=== PATIENT | male | born 1945 | race Caucasian/White ===

== ENCOUNTER → 2016-11-16 | Outpatient (CLI) | payer BC ==
[~2016-11-16] MED LIST: ASPI81TA28 PO; FLV1 PO; FSM70 PO; INHALER INH; LOSA100T65 PO; MULT-506 PO; NIFE60TA66 PO; OMEG10007 PO; PRD/1 PO; WLLSR150 PO
[2016-11-16 14:36] LABS: BASO % 0.7 %; BASO ABS # 0.07 K/uL (0-0.2); COMPLETE YES; EOS % 2.8 %; IG% 1.3 %; LYMPH ABS # 1.56 K/uL (1.2-3.4); MEAN CORPUSCULAR HEMOGLOBIN 35.2 pg (25-34); MEAN CORPUSCULAR HGB CONC 34.5 g/dl (32-36); MEAN PLATELET VOLUME 9.3 fL (7.4-10.4); MONO % 9.7 %; NEUT % 69.5 %; PLATELET COUNT 363 K/uL (130-400); RED BLOOD COUNT 3.92 M/uL (4.7-6.1); WHITE BLOOD COUNT 9.76 K/uL (4.8-10.8)
[2016-11-16 14:50] LABS: ALT/SGPT 21 U/L (12-78); BLOOD UREA NITROGEN 10 mg/dl (7-18); BUN/CREATININE RATIO 10.2 (10-20); CARBON DIOXIDE 28 mmol/L (21-32); CHLORIDE 99 mmol/L (98-107); CHOLESTEROL 206 mg/dl (0-200); CREATININE 0.97 mg/dl (0.60-1.40); GLUCOSE 81 mg/dl (70-99); MAGNESIUM 1.9 mg/dl (1.8-2.4); POTASSIUM 3.9 mmol/L (3.5-5.1); SODIUM 139 mmol/L (136-145); TRIGLYCERIDES 56 mg/dl (0-150); VERY LOW DENSITY LIPOPROT CALC 11 mg/dl
[2016-11-16 14:59] LABS: ALB/GLOB RATIO 0.9 (0.9-2); ALKALINE PHOSPHATASE 111 U/L (45-117); AST/SGOT 33 U/L (15-37); CHOLESTEROL/HDL RATIO 1.9; HDL CHOLESTEROL 109 mg/dl; LDL CHOLESTEROL CALCULATED 86 mg/dl; PROSTATE SPECIFIC ANTIGEN < 0.010 ng/ml (0.000-4.000); THYROID STIMULATING HORMONE 0.903 uIu/ml (0.300-4.500)
== END | disposition home or self-care (01) ==
LOC: C.LAB1850 13:14
PROVIDERS: ATTEND Internal Medicine
DX: C61 Malignant neoplasm of prostate (principal); F32.9 Major depressive disorder, single episode, unspecified; R73.9 Hyperglycemia, unspecified; M35.3 Polymyalgia rheumatica; R25.2 Cramp and spasm; I10 Essential (primary) hypertension

== ENCOUNTER → 2017-05-23 | Outpatient (CLI) | payer BC ==
[~2017-05-23] MED LIST changes: +NIFE1TAB55 PO; -NIFE60TA66 PO
[2017-05-23 15:26] LABS: BASO % 0.9 %; BASO ABS # 0.08 K/uL (0-0.2); COMPLETE YES; EOS % 1.8 %; HEMATOCRIT 41.2 % (42-52); IG% 1.2 %; LYMPH % 11.3 %; LYMPH ABS # 1.05 K/uL (1.2-3.4); MEAN CELL VOLUME 103.3 fL (80-100); MEAN CORPUSCULAR HEMOGLOBIN 34.3 pg (25-34); MEAN CORPUSCULAR HGB CONC 33.3 g/dl (32-36); MEAN PLATELET VOLUME 9.4 fL (7.4-10.4); MONO % 11.9 %; NEUT % 72.9 %; PLATELET COUNT 413 K/uL (130-400); RED BLOOD COUNT 3.99 M/uL (4.7-6.1); WHITE BLOOD COUNT 9.26 K/uL (4.8-10.8)
[2017-05-23 15:53] LABS: ALT/SGPT 26 U/L (12-78); BLOOD UREA NITROGEN 12 mg/dl (7-18); BUN/CREATININE RATIO 11.7 (10-20); CALCIUM 9.6 mg/dl (8.5-10.1); CARBON DIOXIDE 30 mmol/L (21-32); CHLORIDE 98 mmol/L (98-107); GLUCOSE 97 mg/dl (70-99); POTASSIUM 3.8 mmol/L (3.5-5.1); SODIUM 136 mmol/L (136-145)
[2017-05-23 16:02] LABS: ALKALINE PHOSPHATASE 97 U/L (45-117); AST/SGOT 33 U/L (15-37); PROSTATE SPECIFIC ANTIGEN < 0.010 ng/ml (0.000-4.000)
== END | disposition home or self-care (01) ==
LOC: C.LAB1850 14:02
PROVIDERS: ATTEND Internal Medicine
DX: I10 Essential (primary) hypertension (principal); D64.9 Anemia, unspecified; C61 Malignant neoplasm of prostate; Z11.59 Encounter for screening for other viral diseases

== ENCOUNTER → 2017-11-20 | Outpatient (CLI) | payer BC ==
[~2017-11-20] MED LIST changes: -NIFE1TAB55 PO; +NIFE60TA66 PO
[2017-11-20 16:48] LABS: BASO % 0.6 %; BASO ABS # 0.05 K/uL (0-0.2); EOS % 2.2 %; EOS ABS # 0.19 K/uL (0-0.5); HEMATOCRIT 37.8 % (42-52); IG# 0.09 K/uL (0.00-0.02); LYMPH % 13.4 %; LYMPH ABS # 1.16 K/uL (1.2-3.4); MEAN CELL VOLUME 100.3 fL (80-100); MEAN CORPUSCULAR HEMOGLOBIN 34.5 pg (25-34); MEAN CORPUSCULAR HGB CONC 34.4 g/dl (32-36); MEAN PLATELET VOLUME 9.3 fL (7.4-10.4); MONO % 11.8 %; MONO ABS # 1.02 K/uL (0.11-0.59); NEUT ABS # 6.13 K/uL (1.4-6.5); PLATELET COUNT 362 K/uL (130-400); RED CELL DISTRIBUTION WIDTH CV 12.7 % (11.5-14.5); RED CELL DISTRIBUTION WIDTH SD 45.8 fL (36.4-46.3); WHITE BLOOD COUNT 8.64 K/uL (4.8-10.8)
[2017-11-20 17:30] LABS: BLOOD UREA NITROGEN 18 mg/dl (7-18); CREATININE 1.02 mg/dl (0.60-1.40)
== END | disposition home or self-care (01) ==
LOC: C.LAB1850 15:22
PROVIDERS: ATTEND Urology
DX: D64.9 Anemia, unspecified (principal); C61 Malignant neoplasm of prostate

== ENCOUNTER → 2018-01-03 | Outpatient (CLI) | payer BC ==
[~2018-01-03] MED LIST changes: +APR50 PO; +IPRA1AER2 INH; +PRED10TA PO; +PRVHFAIN INH
--- NOTE | 2018-01-03 14:39 | DIAGNOSTIC IMAGING REPORT ---
CHEST 2 VIEWS ROUTINE CLINICAL HISTORY: COUGH COMPARISON STUDY: 04/25/2014 FINDINGS: There is pulmonary emphysema. There is no failure. There is no focal pulmonary consolidation. There are no pleural effusions.[ IMPRESSION: Emphysema. No active disease in the chest. Electronically signed by: Darrell Lawrence M.D. 01/03/2018 2:38 PM Dictated Date/Time: 01/03/2018 2:38 PM
[2018-01-03 15:34] LABS: BASO % 0.8 %; BASO ABS # 0.04 K/uL (0-0.2); EOS % 1.7 %; EOS ABS # 0.08 K/uL (0-0.5); HEMATOCRIT 39.2 % (42-52); HEMOGLOBIN 13.4 g/dL (14.0-18.0); IG# 0.05 K/uL (0.00-0.02); LYMPH ABS # 0.96 K/uL (1.2-3.4); MEAN CELL VOLUME 99.2 fL (80-100); MEAN CORPUSCULAR HEMOGLOBIN 33.9 pg (25-34); MEAN CORPUSCULAR HGB CONC 34.2 g/dl (32-36); MEAN PLATELET VOLUME 9.6 fL (7.4-10.4); MONO % 19.5 %; MONO ABS # 0.94 K/uL (0.11-0.59); NEUT ABS # 2.74 K/uL (1.4-6.5); PLATELET COUNT 326 K/uL (130-400); RED CELL DISTRIBUTION WIDTH CV 12.3 % (11.5-14.5); RED CELL DISTRIBUTION WIDTH SD 44.8 fL (36.4-46.3); WHITE BLOOD COUNT 4.81 K/uL (4.8-10.8)
[2018-01-03 15:59] LABS: ALBUMIN 3.6 gm/dl (3.4-5.0); ALT/SGPT 36 U/L (12-78); BLOOD UREA NITROGEN 20 mg/dl (7-18); CALCIUM 9.5 mg/dl (8.5-10.1); CARBON DIOXIDE 30 mmol/L (21-32); CREATININE 1.23 mg/dl (0.60-1.40); GLUCOSE 95 mg/dl (70-99); SODIUM 133 mmol/L (136-145)
[2018-01-03 16:02] LABS: ALKALINE PHOSPHATASE 90 U/L (45-117); AST/SGOT 46 U/L (15-37); TOTAL PROTEIN 7.2 gm/dl (6.4-8.2)
== END | disposition home or self-care (01) ==
LOC: C.RAD1850 14:22
PROVIDERS: ATTEND Internal Medicine
DX: R05 Cough (principal); J43.9 Emphysema, unspecified

== ENCOUNTER 2018-01-06 13:07 | Inpatient (IN) | payer BC, OTHER ==
[~2018-01-06] VITALS: Ht 177.8 cm; Wt 57.1 kg
[~2018-01-06 13:07] MED LIST changes: -APR50 PO; -ASPI81TA28 PO; -FLV1 PO; -FSM70 PO; -IPRA1AER2 INH; -LOSA100T65 PO; -MULT-506 PO; -OMEG10007 PO; -PRED10TA PO; -PRVHFAIN INH; -WLLSR150 PO
[2018-01-06] MEDS ORDERED: LOSA100T65 PO (14:22)
[2018-01-06] MEDS ORDERED: FLV1 PO (14:22)
[2018-01-06] MEDS ORDERED: ASPI81TA28 PO (14:22)
[2018-01-06] MEDS ORDERED: SODIUM CHLORIDE 0.9% 1000ML 1,000 ML IV STA (14:45)
[2018-01-06] MEDS ORDERED: APR50 PO (15:09)
[2018-01-06 15:12] LABS: BASO % 0.5 %; BASO ABS # 0.02 K/uL (0-0.2); EOS % 1.6 %; EOS ABS # 0.06 K/uL (0-0.5); HEMOGLOBIN 13.2 g/dL (14.0-18.0); IG# 0.03 K/uL (0.00-0.02); LYMPH % 18.7 %; LYMPH ABS # 0.72 K/uL (1.2-3.4); MEAN CELL VOLUME 98.4 fL (80-100); MEAN CORPUSCULAR HEMOGLOBIN 34.2 pg (25-34); MEAN CORPUSCULAR HGB CONC 34.7 g/dl (32-36); MEAN PLATELET VOLUME 9.3 fL (7.4-10.4); MONO % 17.9 %; MONO ABS # 0.69 K/uL (0.11-0.59); NEUT % 60.5 %; NEUT ABS # 2.34 K/uL (1.4-6.5); PLATELET COUNT 256 K/uL (130-400); RED CELL DISTRIBUTION WIDTH CV 12.2 % (11.5-14.5); RED CELL DISTRIBUTION WIDTH SD 43.6 fL (36.4-46.3); WHITE BLOOD COUNT 3.86 K/uL (4.8-10.8)
[2018-01-06] MEDS ORDERED: OMEG10007 PO (15:31)
[2018-01-06] MEDS ORDERED: MULT-506 PO (15:31)
[2018-01-06 15:36] LABS: ALBUMIN 3.5 gm/dl (3.4-5.0); ALT/SGPT 44 U/L (12-78); AST/SGOT 54 U/L (15-37); BLOOD UREA NITROGEN 16 mg/dl (7-18); CALCIUM 8.6 mg/dl (8.5-10.1); CARBON DIOXIDE 29 mmol/L (21-32); CREATININE 1.26 mg/dl (0.60-1.40); GLUCOSE 96 mg/dl (70-99); LIPASE 285 U/L (73-393); SODIUM 135 mmol/L (136-145)
--- NOTE | 2018-01-06 15:42 | DIAGNOSTIC IMAGING REPORT ---
CHEST ONE VIEW PORTABLE CLINICAL HISTORY: EVALUATE WEAKNESS COMPARISON STUDY: Chest radiograph January 03, 2018. FINDINGS: Lungs are hyperexpanded. This suggests emphysema. There is no pneumothorax or pleural effusion. Nipple shadows project over the lower lungs. There is no consolidation to suggest pneumonia. There is no evidence for pulmonary edema. Linear right lower lung opacity suggest atelectasis or scarring. The appearance of the chest is unchanged. IMPRESSION: 1. No acute cardiopulmonary findings. 2. Emphysema. Electronically signed by: Milton Branham M.D. 01/06/2018 3:40 PM Dictated Date/Time: 01/06/2018 3:38 PM
[2018-01-06 15:44] LABS: ALKALINE PHOSPHATASE 94 U/L (45-117); CKMB 1.4 ng/ml (0.5-3.6); TOTAL PROTEIN 7.2 gm/dl (6.4-8.2)
--- NOTE | 2018-01-06 15:54 | EMERGENCY ROOM VISIT NOTE ---
History Report prepared by Devika: Kylie Gil Under the Supervision of: Dr. Bry Ayon M.D. First contact with patient: 14:44 Chief Complaint: ILLNESS Stated Complaint: 1 MO IN BED & COLD FOR 2 WEEKS,NO ENERGY,CANT EAT Nursing Triage Summary: pt c/o illness for about a month. weakness, unsteady, unable to eat, stomach discomfort. lost 10 lb over a month. denies v/d. some nausea. seen by PCP- had Xray which was negative, negative flu. Hx of polymyalgia- "when I get a spell I take Prednisone. I feel like I may be getting that". History of Present Illness The patient is a 72 year old male who presents to the Emergency Room with complaints of constant generalized illness beginning about a month ago. The patient reports fatigue, a lingering cough, slight headache, and decreased appetite. He states he has lost about 10 pounds over the past month. The patient was seen by his PCP three days ago where he had a chest X-ray which was negative and a negative flu. He states he has a "reservoir of fluid which sits at the bottom of my lungs" what when he coughs "very hard" he is able to clear. He notes he has been constipated but believes it may be from his decreased food intake. The patient reports being a former smoker of 50 years. The patient states he is a former alcoholic. He reports he has only had 5 beers in the past month. Pt denies LOC, headache, fevers, chills, diaphoresis, visual changes, neck pain, chest pain, nausea, vomiting, abdominal pain, back pain, melena, hematochezia, urinary symptoms, numbness, focal weakness, lymphadenopathy, rash , or other complaints. Source of History: patient Onset: a month ago Position: other (generalized) Quality: other (illness) Associated Symptoms: + headache, + cough, + fatigue Review of Systems See HPI for pertinent positives and negatives. A total of ten systems were reviewed and were otherwise negative. Past Medical & Surgical Medical Problems: (1) Alcoholism /alcohol abuse (2) HTN (hypertension) (3) Personal History Of Colonic Polyps Surgical Problems: (1) History of prostatectomy (2) History of tonsillectomy Family History FH: cancer FH: lung disease Hypertension Social History Smoking Status: Former Smoker Alcohol Use: heavy Marital Status: single Housing Status: lives alone Occupation Status: employed Current/Historical Medications Scheduled Alendronate Sodium (Alendronate Sodium), 70 MG PO WK Aspirin (Aspirin Ec), 81 MG PO HS Bupropion HCl (Bupropion HCl Sr), 150 MG PO BID Fish Oil ([place]-3), 1 CAP PO QAM Folic Acid (Folic Acid), 1 MG PO QAM Hydralazine HCl (Hydralazine HCl), 75 MG PO BID Losartan Potassium (Cozaar), 100 MG PO QAM Multivitamin (Multivitamin), 0.5 TAB PO BID Allergies Coded Allergies: No Known Allergies (Unverified , 08/22/16) Physical Exam Vital Signs Date Time Temp Pulse Resp B/P (MAP) Pulse Ox O2 Delivery O2 Flow Rate FiO2 01/06/18 18:38 75 20 159/86 95 Nasal Cannula 2.0 01/06/18 18:12 94 Nasal Cannula 2.0 01/06/18 17:05 94 Nasal Cannula 2.0 01/06/18 17:03 88 Room Air 01/06/18 16:05 94 Nasal Cannula 2.0 01/06/18 16:05 88 Room Air 01/06/18 15:40 68 20 140/89 90 Room Air 01/06/18 15:20 70 01/06/18 13:16 36.7 90 20 128/78 94 Room Air Physical Exam GENERAL: Awake, alert, cachetic and gaunt-appearing, in no distress HENT: Normocephalic, atraumatic. Oropharynx unremarkable. EYES: Normal conjunctiva. Sclera non-icteric. NECK: Supple. No nuchal rigidity. FROM. No masses. RESPIRATORY: Clear to auscultation. No wheezes. CARDIAC: Normal rate. Normal rhythm. No murmurs. No rubs. Extremities warm and well perfused. Pulses equal. No JVD. GI: Soft, non-distended. No tenderness to palpation. No rebound or guarding. No masses. RECTAL: Deferred. MUSCULOSKELETAL: Atraumatic. Chest examination reveals no tenderness. The back is symmetrical on inspection without obvious abnormality. There is no CVA tenderness to palpation. No joint edema. LOWER EXTREMITIES: Calves are equal size bilaterally and non-tender. No edema. No discoloration. NEURO: Normal sensorium. No sensory or motor deficits noted. SKIN: No rash or jaundice noted. Medical Decision & Procedures ER Provider Diagnostic Interpretation: Radiology results as stated below per my review and radiologist interpretation: CHEST ONE VIEW PORTABLE FINDINGS: Lungs are hyperexpanded. This suggests emphysema. There is no pneumothorax or pleural effusion. Nipple shadows project over the lower lungs. There is no consolidation to suggest pneumonia. There is no evidence for pulmonary edema. Linear right lower lung opacity suggest atelectasis or scarring. The appearance of the chest is unchanged. IMPRESSION: 1. No acute cardiopulmonary findings. 2. Emphysema. Electronically signed by: Milton Branham M.D. CT ANGIOGRAPHY OF THE CHEST, PULMONARY EMBOLUS PROTOCOL FINDINGS: No pulmonary emboli are identified. There is no evidence of thoracic aortic dissection. The size of the heart is normal. There is moderate coronary artery calcification. No enlarged axillary, mediastinal or hilar lymph nodes are present. There is no consolidation to suggest pneumonia. Linear right lower lung opacity reflects atelectasis. There are mild secretions within the airways with bronchial wall thickening, most evident within the lower lobes. There are severe emphysema. No pneumothorax or pleural effusion is noted. There are no suspicious osseous lesions within the bony thorax. There is cortical calcification within the midpole of the right kidney with suspected scarring. This is partially imaged. IMPRESSION: 1. No pulmonary emboli identified. 2. No consolidation to suggest pneumonia. 3. Severe emphysema. 4. Mild secretions within the airways with diffuse bronchial wall thickening. Electronically signed by: Milton Branham M.D. Laboratory Results 01/06/18 14:56 Red Blood Count 3.86, Mean Corpuscular Volume 98.4, Mean Corpuscular Hemoglobin 34.2, Mean Corpuscular Hemoglobin Concent 34.7, Mean Platelet Volume 9.3, Neutrophils (%) (Auto) 60.5, Lymphocytes (%) (Auto) 18.7, Monocytes (%) (Auto) 17.9, Eosinophils (%) (Auto) 1.6, Basophils (%) (Auto) 0.5, Neutrophils # (Auto ) 2.34, Lymphocytes # (Auto) 0.72, Monocytes # (Auto) 0.69, Eosinophils # (Auto ) 0.06, Basophils # (Auto) 0.02 01/06/18 14:56 Test 01/06/18 14:56 White Blood Count 3.86 K/uL (4.8-10.8) Red Blood Count 3.86 M/uL (4.7-6.1) Hemoglobin 13.2 g/dL (14.0-18.0) Hematocrit 38.0 % (42-52) Mean Corpuscular Volume 98.4 fL (80-100) Mean Corpuscular Hemoglobin 34.2 pg (25-34) Mean Corpuscular Hemoglobin Concent 34.7 g/dl (32-36) Platelet Count 256 K/uL (130-400) Mean Platelet Volume 9.3 fL (7.4-10.4) Neutrophils (%) (Auto) 60.5 % Lymphocytes (%) (Auto) 18.7 % Monocytes (%) (Auto) 17.9 % Eosinophils (%) (Auto) 1.6 % Basophils (%) (Auto) 0.5 % Neutrophils # (Auto) 2.34 K/uL (1.4-6.5) Lymphocytes # (Auto) 0.72 K/uL (1.2-3.4) Monocytes # (Auto) 0.69 K/uL (0.11-0.59) Eosinophils # (Auto) 0.06 K/uL (0-0.5) Basophils # (Auto) 0.02 K/uL (0-0.2) RDW Standard Deviation 43.6 fL (36.4-46.3) RDW Coefficient of Variation 12.2 % (11.5-14.5) Immature Granulocyte % (Auto) 0.8 % Immature Granulocyte # (Auto) 0.03 K/uL (0.00-0.02) Prothrombin Time 10.0 SECONDS (9.0-12.0) Prothromb Time International Ratio 1.0 (0.9-1.1) Activated Partial Thromboplast Time 35.0 SECONDS (21.0-31.0) Partial Thromboplastin Ratio 1.3 Urine Color DK YELLOW Urine Appearance CLEAR (CLEAR) Urine pH 7.0 (4.5-7.5) Urine Specific [place] 1.022 (1.000-1.030) Urine Protein TRACE (NEG) Urine Glucose (UA) NEG (NEG) Urine Ketones TRACE (NEG) Urine Occult Blood NEG (NEG) Urine Nitrite NEG (NEG) Urine Bilirubin NEG (NEG) Urine Urobilinogen NEG (NEG) Urine Leukocyte Esterase TRACE (NEG) Urine WBC (Auto) 1-5 /hpf (0-5) Urine RBC (Auto) 0-4 /hpf (0-4) Urine Hyaline Casts (Auto) 1-5 /lpf (0-5) Urine Epithelial Cells (Auto) 10-20 /lpf (0-5) Urine Bacteria (Auto) NEG (NEG) Anion Gap 6.0 mmol/L (3-11) Est Creatinine Clear Calc Drug Dose 44.1 ml/min Estimated GFR () 66.5 Estimated GFR (Non- 57.4 BUN/Creatinine Ratio 13.0 (10-20) Calcium Level 8.6 mg/dl (8.5-10.1) Magnesium Level 1.9 mg/dl (1.8-2.4) Total Bilirubin 0.4 mg/dl (0.2-1) Direct Bilirubin 0.1 mg/dl (0-0.2) Aspartate Amino Transf (AST/SGOT) 54 U/L (15-37) Alanine Aminotransferase (ALT/SGPT) 44 U/L (12-78) Alkaline Phosphatase 94 U/L (45-117) Total Creatine Kinase 30 U/L (39-308) Creatine Kinase MB 1.4 ng/ml (0.5-3.6) Creatine Kinase MB Ratio 4.7 (0-3.0) Troponin I < 0.015 ng/ml (0-0.045) Total Protein 7.2 gm/dl (6.4-8.2) Albumin 3.5 gm/dl (3.4-5.0) Lipase 285 U/L (73-393) Thyroid Stimulating Hormone (TSH) 1.010 uIu/ml (0.300-4.500) Lyme Disease IgG Antibody NEG (NEG) Lyme Disease IgM Antibody NEG (NEG) Laboratory results reviewed by me Medications Administered Medications (Trade) Dose Ordered Sig/Flash Route Start Time Stop Time Status Last Admin Dose Admin Sodium Chloride 1,000 ml @ 125 mls/hr Q8H STAT IV 01/06/18 14:45 01/06/18 22:44 01/06/18 14:45 125 MLS/HR Methylprednisolone Sodium Succinate (Solu-Medrol IV) 125 mg NOW STAT IV 01/06/18 17:08 01/06/18 17:09 DC 01/06/18 17:08 125 MG Albuterol/ Ipratropium (Duoneb) 3 ml NOW STAT INH 01/06/18 17:08 01/06/18 17:09 DC 01/06/18 17:08 3 ML ECG Per My Interpretation Indication: weakness Rate (beats per minute): 71 Rhythm: normal sinus Findings: LAFB, no acute ischemic change, no ectopy ED Course 1445: Ordered Sodium Chloride 1000 ml @ 125 mls/hr IV. 1457: The patient was evaluated in room B4B. A complete history and physical exam was performed. 1637: I updated the patient on his test results. He is feeling better. 1642: Confirmed CT reading with Dr. Branham-Radiologist. 1644: I updated the patient on my conversation with Dr. Branham-Radiologist. Will do ambulatory pulse ox. 1707: The patient went down to 88 percent on ambulatory pulse ox. Will consult hospitalist. 1708: Ordered Duoneb 3 ml INH, Solu-Medrol IV 125 mg IV. 1709: I updated the patient on the treatment plan. He is agreeable to come into the hospital. 1711: [facility] the [facility] [place] patient will be evaluated for further treatment and disposition. Medical Decision Triage Nursing notes reviewed. The patient's presentation and history were concerning for malaise, weight loss , and cough Etiologies such as metabolic, infection, hypo/hyperglycemia, electrolyte abnormalities, malignancy, cardiac sources, intracerebral event, toxicologic, neurologic, as well as others were entertained. The patient was evaluated. Physical examination as above. His CBC showed a mild anemia and leukopenia. There is no significant issues on chemistry panel. Cardiac markers were negative. ECG was nonischemic. Normal rhythm. He has a long history of alcoholism and smoking. If symptoms changes were noted on chest x-ray. Scarring as well as a possible nipple shadow noted. A CT of the chest was performed to evaluate for PE, malignancy, or infection. There is no evidence of PE or malignancy. Severe COPD noted. Patient was found to be hypoxic at rest and with ambulation. Supplemental oxygen correct this. He was given a DuoNeb and Solu-Medrol. Because of this further evaluation and management in the hospital will be necessary. I gave my usual and customary discussion regarding this issue. Consultation made with internal medicine. The patient was evaluated in the Emergency Room for further management. Medication Reconcilliation Current Medication List: was personally reviewed by me Blood Pressure Screening Patient's blood pressure: Elevated blood pressure Blood pressure disposition: Referred to PCP (referred to hospitalist) Consults Time Called: 1708 Consulting Physician: Dr. Cheung Returned Call: 1700 Discussed the patient's case with Dr. Cheung The patient will be evaluated for further treatment and disposition. Impression Primary Impression: Hypoxia Additional Impressions: COPD exacerbation Failure to thrive Scribe Attestation The scribe's documentation has been prepared under my direction and personally reviewed by me in its entirety. I confirm that the note above accurately reflects all work, treatment, procedures, and medical decision making performed by me. Departure Information Dispostion Being Evaluated By Hospitalist Referrals RV. Sanders MD (PCP) Patient Instructions My [facility] Problem Qualifiers
[2018-01-06] MEDS ORDERED: OPTIRAY 320 IV PRN (16:15)
[2018-01-06] MEDS ORDERED: WLLSR150 PO (16:19)
[2018-01-06] MEDS ORDERED: FSM70 PO (16:24)
--- NOTE | 2018-01-06 16:25 | DIAGNOSTIC IMAGING REPORT ---
CT ANGIOGRAPHY OF THE CHEST, PULMONARY EMBOLUS PROTOCOL CLINICAL HISTORY: Shortness of breath and cough. Weight loss. COMPARISON STUDY: Chest radiographs January 03, 2018 and January 06, 2018. TECHNIQUE: Following IV administration of 109 mL of [id number]-320, helical axial images of the chest were obtained utilizing the pulmonary embolus protocol. Maximal intensity projections and sagittal and coronal reformats were viewed on an independent 3D workstation. IV contrast was administered without complication. A dose lowering technique was utilized adhering to the principles of ALARA. CT DOSE: 244.58 mGy.cm FINDINGS: No pulmonary emboli are identified. There is no evidence of thoracic aortic dissection. The size of the heart is normal. There is moderate coronary artery calcification. No enlarged axillary, mediastinal or hilar lymph nodes are present. There is no consolidation to suggest pneumonia. Linear right lower lung opacity reflects atelectasis. There are mild secretions within the airways with bronchial wall thickening, most evident within the lower lobes. There are severe emphysema. No pneumothorax or pleural effusion is noted. There are no suspicious osseous lesions within the bony thorax. There is cortical calcification within the midpole of the right kidney with suspected scarring. This is partially imaged. IMPRESSION: 1. No pulmonary emboli identified. 2. No consolidation to suggest pneumonia. 3. Severe emphysema. 4. Mild secretions within the airways with diffuse bronchial wall thickening. Electronically signed by: Milton Branham M.D. 01/06/2018 4:24 PM Dictated Date/Time: 01/06/2018 4:12 PM
[2018-01-06] MEDS ORDERED: ALBUT/IPRATROP 3MG/0.5MG NEB 3 ML VIAL INH STA (17:08)
[2018-01-06] MEDS ORDERED: METHYLPREDNISOLONE 125 MG VIAL IV STA (17:08)
[2018-01-06 18:12] VITALS: O2SAT 94; BMI 18.1
[2018-01-06] MEDS ORDERED: ONDANSETRON INJ 2 MG/ML 2 ML VIAL IV PRN (18:15)
[2018-01-06] MEDS ORDERED: ALBUTEROL HFA 8 GM INHALER INH PRN (18:15)
[2018-01-06] MEDS ORDERED: ACETAMINOPHEN 325 MG TAB PO PRN (18:15)
[2018-01-06] MEDS ORDERED: MAGNESIUM HYDROXIDE SUSP 30 ML UDC PO PRN (18:15)
--- NOTE | 2018-01-06 18:24 | History and Physical ---
History & Physical Date & Time of Service: Jan 06, 2018 at 18:10 Chief Complaint: 1 Mo In Bed & Cold For 2 Weeks,No Energy,Cant Eat Primary Care Physician: RV. Sanders MD History of Present Illness Source: patient 72 y/o M with several concerns. Pt states he first felt ill about 1 month ago with fatigue, cough, headache, and decreased appetite. He saw his PCP about 2.5 weeks into this and had CXR and labs done "that were all fine". He was dx with a viral illness at that time. He has continued to feel unwell and feels his sx are getting worse. He has worsening appetite and at this point has lost about 10 lbs "which I didn't have to lose". He does not feel SOB at rest or with basic walking, but he is getting quite SOB with any sort of strenuous activity, which is new for him. No chest pain. Pt denies fever, abd pain, n/v/c/ d, LE pain or swelling. Pt states he was given an inhaler about 5 years ago, but he never used it. Past Medical/Surgical History HTN TIA, on aspirin 81mg Hx of alcohol abuse Family History Family history was reviewed; no changes noted. Social History Smoking Status: Former Smoker (quit x3 years) Alcohol Use: hx of heavy use, max 12 beers per day. He has been mostly alcohol free after working with a counselor and a taper. He has had 5 beers over the last month with last beer last weekend Drug Use: marijuana (daily) Marital Status: single Occupational Status: employed Immunizations History of Influenza Vaccine: No History of Tetanus Vaccine?: Yes History of Pneumococcal: No History of Hepatitis B Vaccine: No Multi-Drug Resistant Organisms History of MDRO: No Allergies Coded Allergies: No Known Allergies (Unverified , 08/22/16) Home Medications Scheduled Alendronate Sodium (Alendronate Sodium), 70 MG PO WK Aspirin (Aspirin Ec), 81 MG PO HS Bupropion HCl (Bupropion HCl Sr), 150 MG PO BID Fish Oil ([place]-3), 1 CAP PO QAM Folic Acid (Folic Acid), 1 MG PO QAM Hydralazine HCl (Hydralazine HCl), 75 MG PO BID Losartan Potassium (Cozaar), 100 MG PO QAM Multivitamin (Multivitamin), 0.5 TAB PO BID Review of Systems Pertinent positives and negatives reviewed in HPI--all others negative Physical Exam Vital Signs Date Time Temp Pulse Resp B/P (MAP) Pulse Ox O2 Delivery O2 Flow Rate FiO2 01/06/18 17:05 94 Nasal Cannula 2.0 01/06/18 17:03 88 Room Air 01/06/18 16:05 94 Nasal Cannula 2.0 01/06/18 16:05 88 Room Air 01/06/18 15:40 68 20 140/89 90 Room Air 01/06/18 15:20 70 01/06/18 13:16 36.7 90 20 128/78 94 Room Air General Appearance: no apparent distress, + thin Head: normocephalic, atraumatic Eyes: normal inspection, sclerae normal Respiratory/Chest: no respiratory distress, + decreased breath sounds Cardiovascular: regular rate, rhythm, no edema Abdomen/GI: non tender, soft Extremities/Musculoskelatal: no calf tenderness, no pedal edema Neurologic/Psych: alert, normal mood/affect, oriented x 3 Skin: normal color, warm/dry Diagnostics Laboratory Results Results Past 24 Hours Test 01/06/18 14:56 Range/Units White Blood Count 3.86 4.8-10.8 K/uL Red Blood Count 3.86 4.7-6.1 M/uL Hemoglobin 13.2 14.0-18.0 g/dL Hematocrit 38.0 42-52 % Mean Corpuscular Volume 98.4 80-100 fL Mean Corpuscular Hemoglobin 34.2 25-34 pg Mean Corpuscular Hemoglobin Concent 34.7 32-36 g/dl Platelet Count 256 130-400 K/uL Mean Platelet Volume 9.3 7.4-10.4 fL Neutrophils (%) (Auto) 60.5 % Lymphocytes (%) (Auto) 18.7 % Monocytes (%) (Auto) 17.9 % Eosinophils (%) (Auto) 1.6 % Basophils (%) (Auto) 0.5 % Neutrophils # (Auto) 2.34 1.4-6.5 K/uL Lymphocytes # (Auto) 0.72 1.2-3.4 K/uL Monocytes # (Auto) 0.69 0.11-0.59 K/uL Eosinophils # (Auto) 0.06 0-0.5 K/uL Basophils # (Auto) 0.02 0-0.2 K/uL RDW Standard Deviation 43.6 36.4-46.3 fL RDW Coefficient of Variation 12.2 11.5-14.5 % Immature Granulocyte % (Auto) 0.8 % Immature Granulocyte # (Auto) 0.03 0.00-0.02 K/uL Prothrombin Time 10.0 9.0-12.0 SECONDS Prothromb Time International Ratio 1.0 0.9-1.1 Activated Partial Thromboplast Time 35.0 21.0-31.0 SECONDS Partial Thromboplastin Ratio 1.3 Urine Color DK YELLOW Urine Appearance CLEAR CLEAR Urine pH 7.0 4.5-7.5 Urine Specific [place] 1.022 1.000-1.030 Urine Protein TRACE NEG Urine Glucose (UA) NEG NEG Urine Ketones TRACE NEG Urine Occult Blood NEG NEG Urine Nitrite NEG NEG Urine Bilirubin NEG NEG Urine Urobilinogen NEG NEG Urine Leukocyte Esterase TRACE NEG Urine WBC (Auto) 1-5 0-5 /hpf Urine RBC (Auto) 0-4 0-4 /hpf Urine Hyaline Casts (Auto) 1-5 0-5 /lpf Urine Epithelial Cells (Auto) 10-20 0-5 /lpf Urine Bacteria (Auto) NEG NEG Sodium Level 135 136-145 mmol/L Potassium Level 4.0 3.5-5.1 mmol/L Chloride Level 100 98-107 mmol/L Carbon Dioxide Level 29 21-32 mmol/L Anion Gap 6.0 3-11 mmol/L Blood Urea Nitrogen 16 7-18 mg/dl Creatinine 1.26 0.60-1.40 mg/dl Est Creatinine Clear Calc Drug Dose 44.1 ml/min Estimated GFR () 66.5 Estimated GFR (Non- 57.4 BUN/Creatinine Ratio 13.0 10-20 Random Glucose 96 70-99 mg/dl Calcium Level 8.6 8.5-10.1 mg/dl Magnesium Level 1.9 1.8-2.4 mg/dl Total Bilirubin 0.4 0.2-1 mg/dl Direct Bilirubin 0.1 0-0.2 mg/dl Aspartate Amino Transf (AST/SGOT) 54 15-37 U/L Alanine Aminotransferase (ALT/SGPT) 44 12-78 U/L Alkaline Phosphatase 94 45-117 U/L Total Creatine Kinase 30 39-308 U/L Creatine Kinase MB 1.4 0.5-3.6 ng/ml Creatine Kinase MB Ratio 4.7 0-3.0 Troponin I < 0.015 0-0.045 ng/ml Total Protein 7.2 6.4-8.2 gm/dl Albumin 3.5 3.4-5.0 gm/dl Lipase 285 73-393 U/L Thyroid Stimulating Hormone (TSH) 1.010 0.300-4.500 uIu/ml Lyme Disease IgG Antibody NEG NEG Lyme Disease IgM Antibody NEG NEG Microbiology Results 01/06/18 Urine Culture, Received Pending Diagnostic Radiology CXR and CTA both noted for severe emphysema Impression Assessment and Plan 72 y/o M who was admitted on 01/06 for COPD exacerbation COPD exacerbation: hypoxia noted with exertion New dx for pt, will need formal PFTs once recovered CXR/CTA noted for COPD Nebs, steroids Will need home inhaler Wean O2 as able CBC WNL, afebrile Lyme neg TSH WNL Trop neg Weight loss: likely related to poor appetite and PO intake during viral illness in the setting of COPD and poor recovery Pt follows with GI Q3 years for c-scopes for hx of benign polyps, next scope is this year Hx of prostate ca, f/u scheduled with Dr. Mai in 1 week Advised close f/u Alcohol use: last drink was over a week ago and has been with minimal intake recently Monitor No hx of withdrawal issues/seizures Hx of TIA: continue with aspirin 81mg HTN: stable, continue home meds Other: Full code, does not want prolonged mechanical life support or feeding tubes Ambulation for DVT proph Reg diet Pt would like a tetanus shot prior to d/c as he states >10years since his last. Level of Care Med/Surg Resuscitation Status FULL RESUSCITATION VTE Prophylaxis VTE Risk Assessment Done? Y/N: Yes Risk Level: Low
[2018-01-06] MEDS ORDERED: MULTIVITAMIN TAB PO SCH (20:14)
[2018-01-06 20:29] VITALS: BP_SYST 174; BP_SYST 176; BP_DIAS 81; BP_DIAS 86; PULSE 62; TEMP 36.8; O2SAT 97
[2018-01-06] MEDS: ALBUT/IPRATROP 3MG/0.5MG NEB 3 ML VIAL NEB SCH (20:58)
[2018-01-06] MEDS: BuPROPion SR 150 MG TABCR PO SCH (22:26)
[2018-01-06] MEDS: ASPIRIN 81 MG ECTAB PO SCH (22:27)
[2018-01-07] VITALS (8 sets, daily range): BP systolic 143–166; BP diastolic 68–77; PULSE 71–83; TEMP 36.7–36.8; O2SAT 92–95; Ht 177.8 cm; Wt 57.1 kg
[2018-01-07] MEDS: ALBUT/IPRATROP 3MG/0.5MG NEB 3 ML VIAL NEB SCH ×4 (01:53→19:25)
[2018-01-07] MEDS: BuPROPion SR 150 MG TABCR PO SCH ×2 (08:07→21:07)
[2018-01-07] MEDS: METHYLPREDNISOLONE IV 40 MG in SYRINGE 0 ML IV SCH (08:07)
[2018-01-07] MEDS: LOSARTAN POTASSIUM 50 MG TAB PO SCH (08:08)
[2018-01-07] MEDS: MULTIVITAMIN TAB PO SCH (08:10)
[2018-01-07] MEDS: OMEGA-3 (PURIFIED FISH OIL) 1 GM CAP PO SCH (08:11)
--- NOTE | 2018-01-07 12:19 | Medical Student: [facility] ---
Med Student History & Physical Date & Time of Service: Jan 07, 2018 at 11:13 Chief Complaint: Copd Exacerbation Primary Care Physician: RV. Sanders MD History of Present Illness Source: patient, clinic records, hospital records Pt is a 72 year old M with PMHx of COPD, HTN, and hx of TIA who presents for continued worsening with his month long illness. He has noted decreased appetite , SANTOS, and new onset SOB with exertion. He denies SOB at rest, fevers, chills or chest pain. He saw his PCP on January 03 for his illness, had a CXR which was negative for infection, normal CBC and was diagnosed with a viral illness. He does not use O2 for his COPD nor does he use any inhaled medications. He does have a hx of heavy use of alcohol. States he drinks about 10 to 12 beers daily. Hasn't had many beers this month due to illness and no desire to drink. States he may have had 5 the entire month. [place] Past Medical/Surgical History Medical Problems: (1) COPD exacerbation Status: Acute (2) Failure to thrive Status: Acute (3) Hypoxia Status: Acute PMHx of prostate cancer S/P prostatectomy, TIA (2012), HTN Family History Family hx of liver cancer, alcoholism, DM, prostate cancer Social History Smoking Status: Former Smoker (quit x3 years) Alcohol Use: Hx of heavy use of alcohol Drug Use: marijuana (daily) Marital Status: single Occupational Status: employed Immunizations History of Influenza Vaccine: No History of Tetanus Vaccine?: Yes History of Pneumococcal: No History of Hepatitis B Vaccine: No Allergies Coded Allergies: No Known Allergies (Unverified , 08/22/16) Medications Alendronate Sodium (Alendronate Sodium), 70 MG PO WK Aspirin (Aspirin Ec), 81 MG PO HS Bupropion HCl (Bupropion HCl Sr), 150 MG PO BID Fish Oil ([place]-3), 1 CAP PO QAM Folic Acid (Folic Acid), 1 MG PO QAM Hydralazine HCl (Hydralazine HCl), 75 MG PO BID Losartan Potassium (Cozaar), 100 MG PO QAM Multivitamin (Multivitamin), 0.5 TAB PO BID Review of Systems Constitutional: + weight loss, + fatigue Respiratory: + cough, + shortness of breath, + dyspnea on exertion, No dyspnea at rest Cardiovascular: No chest pain Abdomen: No vomiting, No diarrhea, No constipation Musculoskeletal: No muscle pain, No swelling, No calf pain Psychiatric: No depression symptoms Physical Exam Vital Signs (24 Hours) Date Time Temp Pulse Resp B/P (MAP) Pulse Ox O2 Delivery O2 Flow Rate FiO2 01/07/18 08:00 Nasal Cannula 2.0 01/07/18 07:32 78 18 94 Nasal Cannula 2.0 01/07/18 07:31 36.8 71 18 149/75 (99) 95 Nasal Cannula 2.0 01/07/18 01:54 76 18 94 Nasal Cannula 2.0 01/07/18 00:06 36.7 76 16 143/68 (93) 94 Nasal Cannula 2.0 01/06/18 20:29 36.8 62 16 174/81 (112) 97 Nasal Cannula 3.0 176/86 (116) 01/06/18 19:35 36.7 75 20 159/86 95 01/06/18 18:38 75 20 159/86 95 Nasal Cannula 2.0 01/06/18 18:12 94 Nasal Cannula 2.0 01/06/18 17:05 94 Nasal Cannula 2.0 01/06/18 17:03 88 Room Air 01/06/18 16:05 94 Nasal Cannula 2.0 01/06/18 16:05 88 Room Air 01/06/18 15:40 68 20 140/89 90 Room Air 01/06/18 15:20 70 01/06/18 13:16 36.7 90 20 128/78 94 Room Air General Appearance: no apparent distress Head: normocephalic, atraumatic Eyes: normal inspection, sclerae normal Neck: no JVD Respiratory/Chest: chest non-tender, lungs clear, normal breath sounds, no respiratory distress, no accessory muscle use Cardiovascular: regular rate, rhythm, no edema, no gallop, no JVD, no murmur, normal peripheral pulses Abdomen/GI: normal bowel sounds, non tender, soft Extremities/Musculoskelatal: normal inspection, no calf tenderness, normal capillary refill Neurologic/Psych: alert, normal mood/affect, oriented x 3 Skin: normal color, warm/dry, no rash Diagnostics Laboratory Results Results Past 24 Hours Test 01/06/18 14:56 Range/Units White Blood Count 3.86 4.8-10.8 K/uL Red Blood Count 3.86 4.7-6.1 M/uL Hemoglobin 13.2 14.0-18.0 g/dL Hematocrit 38.0 42-52 % Mean Corpuscular Volume 98.4 80-100 fL Mean Corpuscular Hemoglobin 34.2 25-34 pg Mean Corpuscular Hemoglobin Concent 34.7 32-36 g/dl Platelet Count 256 130-400 K/uL Mean Platelet Volume 9.3 7.4-10.4 fL Neutrophils (%) (Auto) 60.5 % Lymphocytes (%) (Auto) 18.7 % Monocytes (%) (Auto) 17.9 % Eosinophils (%) (Auto) 1.6 % Basophils (%) (Auto) 0.5 % Neutrophils # (Auto) 2.34 1.4-6.5 K/uL Lymphocytes # (Auto) 0.72 1.2-3.4 K/uL Monocytes # (Auto) 0.69 0.11-0.59 K/uL Eosinophils # (Auto) 0.06 0-0.5 K/uL Basophils # (Auto) 0.02 0-0.2 K/uL RDW Standard Deviation 43.6 36.4-46.3 fL RDW Coefficient of Variation 12.2 11.5-14.5 % Immature Granulocyte % (Auto) 0.8 % Immature Granulocyte # (Auto) 0.03 0.00-0.02 K/uL Prothrombin Time 10.0 9.0-12.0 SECONDS Prothromb Time International Ratio 1.0 0.9-1.1 Activated Partial Thromboplast Time 35.0 21.0-31.0 SECONDS Partial Thromboplastin Ratio 1.3 Urine Color DK YELLOW Urine Appearance CLEAR CLEAR Urine pH 7.0 4.5-7.5 Urine Specific [place] 1.022 1.000-1.030 Urine Protein TRACE NEG Urine Glucose (UA) NEG NEG Urine Ketones TRACE NEG Urine Occult Blood NEG NEG Urine Nitrite NEG NEG Urine Bilirubin NEG NEG Urine Urobilinogen NEG NEG Urine Leukocyte Esterase TRACE NEG Urine WBC (Auto) 1-5 0-5 /hpf Urine RBC (Auto) 0-4 0-4 /hpf Urine Hyaline Casts (Auto) 1-5 0-5 /lpf Urine Epithelial Cells (Auto) 10-20 0-5 /lpf Urine Bacteria (Auto) NEG NEG Sodium Level 135 136-145 mmol/L Potassium Level 4.0 3.5-5.1 mmol/L Chloride Level 100 98-107 mmol/L Carbon Dioxide Level 29 21-32 mmol/L Anion Gap 6.0 3-11 mmol/L Blood Urea Nitrogen 16 7-18 mg/dl Creatinine 1.26 0.60-1.40 mg/dl Est Creatinine Clear Calc Drug Dose 44.1 ml/min Estimated GFR () 66.5 Estimated GFR (Non- 57.4 BUN/Creatinine Ratio 13.0 10-20 Random Glucose 96 70-99 mg/dl Calcium Level 8.6 8.5-10.1 mg/dl Magnesium Level 1.9 1.8-2.4 mg/dl Total Bilirubin 0.4 0.2-1 mg/dl Direct Bilirubin 0.1 0-0.2 mg/dl Aspartate Amino Transf (AST/SGOT) 54 15-37 U/L Alanine Aminotransferase (ALT/SGPT) 44 12-78 U/L Alkaline Phosphatase 94 45-117 U/L Total Creatine Kinase 30 39-308 U/L Creatine Kinase MB 1.4 0.5-3.6 ng/ml Creatine Kinase MB Ratio 4.7 0-3.0 Troponin I < 0.015 0-0.045 ng/ml Total Protein 7.2 6.4-8.2 gm/dl Albumin 3.5 3.4-5.0 gm/dl Lipase 285 73-393 U/L Thyroid Stimulating Hormone (TSH) 1.010 0.300-4.500 uIu/ml Lyme Disease IgG Antibody NEG NEG Lyme Disease IgM Antibody NEG NEG Hepatitis C Antibody Screen NEG NEG Microbiology Results 01/06/18 Urine Culture, Received Pending Diagnostic Radiology CHEST ONE VIEW PORTABLE CLINICAL HISTORY: EVALUATE WEAKNESS COMPARISON STUDY: Chest radiograph January 03, 2018. FINDINGS: Lungs are hyperexpanded. This suggests emphysema. There is no pneumothorax or pleural effusion. Nipple shadows project over the lower lungs. There is no consolidation to suggest pneumonia. There is no evidence for pulmonary edema. Linear right lower lung opacity suggest atelectasis or scarring. The appearance of the chest is unchanged. IMPRESSION: 1. No acute cardiopulmonary findings. 2. Emphysema. CT ANGIOGRAPHY OF THE CHEST, PULMONARY EMBOLUS PROTOCOL CLINICAL HISTORY: Shortness of breath and cough. Weight loss. COMPARISON STUDY: Chest radiographs January 03, 2018 and January 06, 2018. TECHNIQUE: Following IV administration of 109 mL of Optiray-320, helical axial images of the chest were obtained utilizing the pulmonary embolus protocol. Maximal intensity projections and sagittal and coronal reformats were viewed on an independent 3D workstation. IV contrast was administered without complication. A dose lowering technique was utilized adhering to the principles of ALARA. CT DOSE: 244.58 mGy.cm FINDINGS: No pulmonary emboli are identified. There is no evidence of thoracic aortic dissection. The size of the heart is normal. There is moderate coronary artery calcification. No enlarged axillary, mediastinal or hilar lymph nodes are present. There is no consolidation to suggest pneumonia. Linear right lower lung opacity reflects atelectasis. There are mild secretions within the airways with bronchial wall thickening, most evident within the lower lobes. There are severe emphysema. No pneumothorax or pleural effusion is noted. There are no suspicious osseous lesions within the bony thorax. There is cortical calcification within the midpole of the right kidney with suspected scarring. This is partially imaged. IMPRESSION: 1. No pulmonary emboli identified. 2. No consolidation to suggest pneumonia. 3. Severe emphysema. 4. Mild secretions within the airways with diffuse bronchial wall thickening. No change from prior EKG Impression Assessment and Plan A: Pt is a 72 year old man with PMHx of COPD, HTN, alcohol abuse, and TIA. He presents with 1 mo of viral illness, decreased appetite and loss of 10lbs, and SOB with exertion. He states he is doing better, though still complains of cough. P: 1. COPD exacerbation a. Continue Duoneb Q6h b. Albuterol PRN Q4h for wheezing c. May consider Azithromycin d. Attempt trial without O2 to see pt's saturation 2. HTN a. Continue pt's home meds of Hydralazine and Losartan b. Of note, pt was not able to tolerate Nifedipine outpatient and stopped HCTZ previously for hyponatremia. 3. Depression a. Continue Bupropion 4. Alcohol use a. As pt has not had much alcohol this month due to his illness thus withdraw sx or seizures are unlikely b. Continue encouraging decreasing consumption Advanced Directives Existing Living Will: Yes Existing Power of [employer]: Yes
[2018-01-07] MEDS: ASPIRIN 81 MG ECTAB PO SCH (21:06)
--- NOTE | 2018-01-07 23:02 | Progress Note ---
Subjective Date of Service: Jan 07, 2018. Subjective Pt evaluation today including: conversation w/ patient Pt is a 72 year old M with PMHx of COPD, HTN, and hx of TIA who presents for continued worsening with his month long illness. He has noted decreased appetite , SANTOS, and new onset SOB with exertion. He denies SOB at rest, fevers, chills or chest pain. He saw his PCP on January 03 for his illness, had a CXR which was negative for infection, normal CBC and was diagnosed with a viral illness. He does not use O2 for his COPD nor does he use any inhaled medications. He does have a hx of heavy use of alcohol. States he drinks about 10 to 12 beers daily. Hasn't had many beers this month due to illness and no desire to drink. States he may have had 5 the entire month. [place] Problem List Medical Problems: (1) COPD exacerbation Status: Acute (2) Failure to thrive Status: Acute (3) Hypoxia Status: Acute Review of Systems Constitutional: No fever, No chills ENT: No hearing loss Respiratory: + cough, No sputum Cardiac: No chest pain Abdomen: No pain Neurologic: No memory loss Psychiatric: No depression symptoms, No anhedonism Heme: No abnormal bleeding/bruising Endo: No fatigue All Other Systems: Reviewed and Negative Objective Vital Signs Date Time Temp Pulse Resp B/P (MAP) Pulse Ox O2 Delivery O2 Flow Rate FiO2 01/07/18 20:05 Nasal Cannula 2.0 01/07/18 19:25 82 18 92 Room Air 01/07/18 16:06 36.8 83 19 166/77 (106) 94 Nasal Cannula 2.0 01/07/18 16:04 36.8 83 19 166/77 (106) 94 2.0 01/07/18 16:00 Nasal Cannula 2.0 01/07/18 16:00 16 92 Room Air 01/07/18 08:00 Nasal Cannula 2.0 01/07/18 07:32 78 18 94 Nasal Cannula 2.0 01/07/18 07:31 36.8 71 18 149/75 (99) 95 Nasal Cannula 2.0 01/07/18 01:54 76 18 94 Nasal Cannula 2.0 01/07/18 00:06 36.7 76 16 143/68 (93) 94 Nasal Cannula 2.0 Physical Exam General Appearance: WD/WN, no apparent distress Eyes: normal inspection ENT: normal ENT inspection Neck: supple, no adenopathy Respiratory/Chest: chest non-tender, no respiratory distress, no accessory muscle use, + decreased breath sounds (at bases) Cardiovascular: regular rate, rhythm, no edema Abdomen: normal bowel sounds, non tender, soft Neurologic/Psychiatric: alert, oriented x 3 Skin: normal color Assessment and Plan Pt is a 72 year old man with PMHx of COPD, HTN, alcohol abuse, and TIA. He presents with 1 mo of viral illness, decreased appetite and loss of 10lbs, and SOB with exertion. Admitted on 01/06 He states he is doing better, though still complains of cough. P: 1. COPD exacerbation a. Continue Duoneb Q6h b. Albuterol PRN Q4h for wheezing c. May consider Azithromycin d. Attempt trial without O2 to see pt's saturation e. new diagnosis will need PFT as outpatient 2. HTN a. Continue pt's home meds of Hydralazine and Losartan b. Of note, pt was not able to tolerate Nifedipine outpatient and stopped HCTZ previously for hyponatremia. 3. Depression a. Continue Bupropion 4. Alcohol use a. As pt has not had much alcohol this month due to his illness thus withdraw sx or seizures are unlikely b. Continue encouraging decreasing consumption 5.Weight loss: likely related to poor appetite and PO intake during viral illness in the setting of COPD and poor recovery Pt follows with GI Q3 years for c-scopes for hx of benign polyps, next scope is this year Hx of prostate ca, f/u scheduled with Dr. Mai in 1 week Advised close f/u Other: Full code, does not want prolonged mechanical life support or feeding tubes Ambulation for DVT proph Reg diet Pt would like a tetanus shot prior to d/c as he states >10years since his last.
[2018-01-08] VITALS (8 sets, daily range): BP systolic 120–153; BP diastolic 64–70; PULSE 75–82; TEMP 36.5–36.9; O2SAT 90–94
[2018-01-08] MEDS: ALBUT/IPRATROP 3MG/0.5MG NEB 3 ML VIAL NEB SCH ×2 (02:02→07:22)
[2018-01-08] MEDS: OMEGA-3 (PURIFIED FISH OIL) 1 GM CAP PO SCH (10:46)
[2018-01-08] MEDS: BuPROPion SR 150 MG TABCR PO SCH (10:46)
[2018-01-08] MEDS: METHYLPREDNISOLONE IV 40 MG in SYRINGE 0 ML IV SCH (10:46)
[2018-01-08] MEDS: MULTIVITAMIN TAB PO SCH (10:48)
[2018-01-08] MEDS: LOSARTAN POTASSIUM 50 MG TAB PO SCH (10:48)
--- NOTE | 2018-01-08 10:52 | Clinical Documentation Query ---
CLINICAL DOCUMENTATION QUERY 72 year old male who presents to the Emergency Room with complaints of constant weakness, unsteady, unable to eat, stomach discomfort and has lost 10 lb over a month. In your clinical opinion is this patient being managed for: ( ) Malnutrition ( ) Mild ( ) Moderate ( ) Severe ( ) Not Agree ( ) Other explanation of clinical findings (Please Explain) ( ) Unable to determine (Please Define) ( ) Need to Discuss The medical record reflects the following clinical findings, treatment, and risk factors. Clinical Indicators: As above. BMI 18.1. Tino score of 17. wt loss of 7.4% in 1 month Treatment: dietary referral, regular diet, CBE (bri) @ PM snack time. Monitor weights, I/O's, and skin status. Risk Factors: Age, alcoholism history, prolonged acute illness. Please clarify and document your clinical opinion in the progress notes and discharge summary. Terms such as "probable", "suspected", "likely", "questionable", "possible", or "still to be ruled out" are acceptable. IF IN AGREEMENT, YOU MUST DOCUMENT ABOVE DIAGNOSTIC STATEMENT IN DAILY PROGRESS NOTES AND DISCHARGE SUMMARY. This document is not part of the patient's record. Thank You, Berto Grewal, RN [phone]
--- NOTE | 2018-01-08 11:08 | Medical Student: [facility] ---
Med Student Progress Note Date of Service Jan 08, 2018. Subjective Pt evaluation today including: conversation w/ patient, physical exam, chart review, lab review, review of studies Pain: none PO Intake: good Voiding: no voiding problems Pt notes he is continuing to feel better. He is off of O2 and saturating 90-92. He denied any acute events last night and no fevers. Still complains of mild cough. Pt feels he is well enough to go home and has no concerns. Review of Systems Constitutional: No fever, No chills Respiratory: + cough Cardiac: No chest pain, No edema Abdomen: No pain, No nausea, No vomiting, No diarrhea, No constipation Objective Vital Signs Date Time Temp Pulse Resp B/P (MAP) Pulse Ox O2 Delivery O2 Flow Rate FiO2 01/08/18 08:27 36.5 81 18 134/64 (87) 91 Room Air 01/08/18 07:22 82 18 92 Room Air 01/08/18 02:02 78 18 90 Room Air 01/08/18 01:11 36.7 76 20 120/64 (82) 92 Room Air 01/08/18 00:05 Nasal Cannula 2.0 01/07/18 20:05 Nasal Cannula 2.0 01/07/18 19:25 82 18 92 Room Air 01/07/18 16:06 36.8 83 19 166/77 (106) 94 Nasal Cannula 2.0 01/07/18 16:04 36.8 83 19 166/77 (106) 94 2.0 01/07/18 16:00 Nasal Cannula 2.0 01/07/18 16:00 16 92 Room Air Physical Exam General Appearance: WD/WN, no apparent distress, + thin Neck: supple, no JVD Respiratory/Chest: chest non-tender, lungs clear, no respiratory distress, no accessory muscle use, + decreased breath sounds Cardiovascular: regular rate, rhythm, no edema, no gallop, no murmur Abdomen: normal bowel sounds, non tender, soft Extremities: non-tender, no pedal edema, no calf tenderness Neurologic/Psychiatric: alert, oriented x 3 Skin: normal color, warm/dry, no rash Assessment and Plan Assessment and Plan: A: Pt is a 72 year old man with PMHx of COPD, HTN, alcohol abuse, and TIA. He presents with 1 mo of viral illness, decreased appetite and loss of 10lbs, and SOB with exertion. 01/08 - He states he is continuing to do better, is off of O2 and has a lingering cough. P: 1. COPD exacerbation a. Consider discharging patient on an inhaled anticholinergic medication for management of COPD 2. HTN a. Continue pt's home meds of Hydralazine and Losartan b. Of note, pt was not able to tolerate Nifedipine outpatient and stopped HCTZ previously for hyponatremia. 3. Depression a. Continue Bupropion 4. Alcohol use a. As pt has not had much alcohol this month due to his illness thus withdraw sx or seizures are unlikely b. Continue encouraging decreasing consumption
[2018-01-08] MEDS ORDERED: ALBUT/IPRATROP 3MG/0.5MG NEB 3 ML VIAL NEB PRN (14:45)
[2018-01-08] MEDS ORDERED: PRED10TA PO (15:07)
[2018-01-08] MEDS ORDERED: PRVHFAIN INH (15:07)
--- NOTE | 2018-01-08 16:46 | Discharge Instructions ---
Discharge Instructions Date of Service Jan 08, 2018. Admission Reason for Admission: Copd Exacerbation Discharge Discharge Diagnosis / Problem: COPD exacerbatiom Discharge Goals Goal(s): Decrease discomfort, Improve function Activity Recommendations Activity Limitations: resume your previous activity Lifting Limitations: gradually increase as tolerated . Instructions / Follow-Up Instructions / Follow-Up Follow up with PCP in 1-2 weeks Current Hospital Diet Patient's current hospital diet: Regular Diet Discharge Diet Recommended Diet: Regular Diet Pending Studies Studies pending at discharge: no Medical Emergencies . Who to Call and When: Medical Emergencies: If at any time you feel your situation is an emergency, please call 911 immediately. . Non-Emergent Contact Non-Emergency issues call your: Primary Care Provider Call Non-Emergent contact if: you have any medication questions . . "Provider Documentation" section prepared by Duy Angulo. . VTE Core Measure Inpt VTE Proph given/why not?: Treatment not indicated (ambulating)
[2018-01-08] MEDS ORDERED: IPRA1AER2 INH (16:52)
[2018-01-08] MEDS ORDERED: IPRATROPIUM BROMIDE/ALBUTEROL respimat INH INH SCH (18:00)
--- NOTE | 2018-01-10 10:21 | EDITING REQUIRED CODING QUERY ---
BMI To promote full compliance with coding requirements relating to patient care, physician participation is requested in all cases of utility worker driver uncertainty. Please assist us with the question(s) below: Please place an X within the parenthesis (x). If other, please document: BMI 18.1 was documented in this record for this patient. If the BMI is significant, please check the box that provides a more specific associated diagnosis: ( ) Overweight/Obese ( ) Obesity ( ) Morbid obesity ( ) Obesity Hypoventilation Syndrome (OHS) ( ) Heathy weight, not significant ( x ) Underweight/Thin ( ) Other, please specify Thank you Nicole Guthrie
--- NOTE | 2018-01-10 10:23 | EDITING REQUIRED CODING QUERY ---
MALNUTRITION To promote full compliance with coding requirements relating to patient care, physician participation is requested in all cases of inspector canvas products uncertainty. Please assist us with the question(s) below: Please place an X within the parenthesis (x). If other, please document: "Malnutrition" is documented in this record. If possible, please check the box that provides a more specific diagnosis: ( ) Mild malnutrition ( ) Moderate malnutrition ( ) Severe malnutrition ( ) Protein malnutrition (kwashiorkor) ( ) Severe protein calorie malnutrition ( x ) Protein calorie malnutrition, unspecified ( ) Other (please specify): Was this diagnosis present on admission? Please place an X within the parenthesis (x). ( x ) Present on admission ( ) Not present on admission ( ) Unable to be clinically determined Thank you Nicole Guthrie
--- NOTE | 2018-01-11 09:36 | Discharge Summary ---
Discharge Summary Date of Service Jan 08, 2018. Discharge Summary Admission Date: Jan 06, 2018 at 18:09 Discharge Date: Jan 08, 2018 Discharge Disposition: Home Principal Diagnosis: COPD exacerbation Problems/Secondary Diagnoses: As noted below Immunizations: Have You Had Influenza Vaccine: No History of Tetanus Vaccine?: Yes History of Pneumococcal: No History of Hepatitis B Vaccine: No Procedures: CT scan IMPRESSION: 1. No pulmonary emboli identified. 2. No consolidation to suggest pneumonia. 3. Severe emphysema. 4. Mild secretions within the airways with diffuse bronchial wall thickening. Medication Reconciliation New Medications: Prednisone Tab (Prednisone) 10 Mg Tab 50 MG PO DAILY for 11 Days, #35 TAB take 5 tabs once for 3 days Take 4 tabs for 2 days Take 3 tabs for 2 days take 2 tabs for 2 days take 1 tabs for 2 days Albuterol (Ventolin Hfa) 60 Puffs/5400 Mcg Aers 2 PUFFS INH Q4H PRN for SOB/Wheezing for 30 Days, #1 INHA 1 Refill Ipratropium-Albuterol (Combivent Respimat) 1 Aer Aer 1 PUFFS INH Q6 PRN for Shortness of Breath for 30 Days Continued Medications: Alendronate Sodium (Alendronate Sodium) 70 Mg Tab 70 MG PO WK TAKE THIS MEDICATION EVERY SUNDAY Aspirin (Aspirin Ec) 81 Mg Tab 81 MG PO HS Bupropion HCl (Bupropion HCl Sr) 150 Mg Tabcr 150 MG PO BID Fish Oil ([place]-3) 1 Ea Cap 1 CAP PO QAM, CAP Folic Acid (Folic Acid) 1 Mg Tab 1 MG PO QAM Hydralazine HCl (Hydralazine HCl) 50 Mg Tab 75 MG PO BID Losartan Potassium (Cozaar) 100 Mg Tab 100 MG PO QAM, TAB Multivitamin (Multivitamin) Tab 0.5 TAB PO BID, TAB Discharge Exam Physical Exam General Appearance: WD/WN, no apparent distress Eyes: normal inspection ENT: normal ENT inspection Neck: supple, no adenopathy Respiratory/Chest: chest non-tender, no respiratory distress, no accessory muscle use, + decreased breath sounds (at bases) Cardiovascular: regular rate, rhythm, no edema Abdomen: normal bowel sounds, non tender, soft Neurologic/Psychiatric: alert, oriented x 3 Skin: normal color Review of Systems: Constitutional: No fever, No chills Eyes: No worsening of vision ENT: No hearing loss Respiratory: No cough, No sputum, No wheezing Cardiovascular: No chest pain, No orthopnea Abdomen: No pain, No nausea Musculoskeletal: No joint pain Genitourinary - Male: No hematuria Neurologic: No memory loss Psychiatric: No depression symptoms Endocrine: No fatigue, No excessive thirst Hematologic / Lymphatic: No abnormal bleeding/bruising Integumentary: No rash Hospital Course Pt is a 72 year old man with PMHx of COPD, HTN, alcohol abuse, and TIA. He presents with 1 mo of viral illness, decreased appetite and loss of 10lbs, and SOB with exertion. Admitted on 01/06 He states he is doing better, though still complains of cough. P: 1. COPD exacerbation a. was treated with steroids and duoneb b. Albuterol PRN Q4h for wheezing c. Patient gradually improved each day. d. Was able to wean down oygen back to baseline e. new diagnosis will need PFT as outpatient. (suspect by x-ray and ct scan, will need PFT to confirm) f. will discharge patient on prn rescue inhalers 2. HTN a. Continue pt's home meds of Hydralazine and Losartan b. Of note, pt was not able to tolerate Nifedipine outpatient and stopped HCTZ previously for hyponatremia. 3. Depression a. Continue Bupropion 4. Alcohol use a. As pt has not had much alcohol this month due to his illness thus withdraw sx or seizures are unlikely b. Continue encouraging decreasing consumption 5.Weight loss: likely related to poor appetite and PO intake during viral illness in the setting of COPD and poor recovery Pt follows with GI Q3 years for c-scopes for hx of benign polyps, next scope is this year Hx of prostate ca, f/u scheduled with Dr. Mai in 1 week Advised close f/u Other: Full code, does not want prolonged mechanical life support or feeding tubes Ambulation for DVT proph Reg diet Recommend getting tetanus shot as outpatient. Total Time Spent: Greater than 30 minutes This includes examination of the patient, discharge planning, medication reconciliation, and communication with other providers. Discharge Instructions Please refer to the electronic Patient Visit Report (Discharge Instructions) for additional information. Follow-Up As noted in discharge instructions Additional Copies To RV. Sanders MD
== END 2018-01-08 17:38 | disposition home or self-care (01) | DRG 191 ==
LOC: C.EDB 13:09 → C.MS4W 18:09 → ENRESERV 18:27
PROVIDERS: ADMIT Family Medicine; ATTEND Family Medicine
DX: J44.1 Chronic obstructive pulmonary disease with (acute) exacerbation (principal); E46 Unspecified protein-calorie malnutrition; I10 Essential (primary) hypertension; F10.20 Alcohol dependence, uncomplicated; F12.10 Cannabis abuse, uncomplicated; R62.7 Adult failure to thrive; Z86.73 Personal history of transient ischemic attack (TIA), and cerebral infarction without residual deficits; Z87.19 Personal history of other diseases of the digestive system; Z87.891 Personal history of nicotine dependence; Z79.82 Long term (current) use of aspirin; Z80.9 Family history of malignant neoplasm, unspecified; Z82.49 Family history of ischemic heart disease and other diseases of the circulatory system